=== PATIENT | male | born 1960 | race Caucasian/White ===

== ENCOUNTER 2017-07-13 14:29 | Emergency (ER) | payer OTHER ==
[~2017-07-13] VITALS: Ht 162.6 cm; Wt 72.3 kg
[2017-07-13 15:00] VITALS: Ht 162.6 cm; Wt 72.3 kg
[2017-07-13] MEDS ORDERED: SOD CHLORIDE 0.9% 1,000 ML IV STA (17:11)
[2017-07-13] MEDS ORDERED: ASPIRIN 325 MG TAB PO STA (17:11)
[2017-07-13 17:13] LABS: BASOPHILS % 0.4 % (0.0-2.0); EOSINOPHILS # 0.1 10^3/ul (0.0-0.5); EOSINOPHILS % 2.3 % (0.0-7.0); HEMATOCRIT 40.2 % (42.0-52.0); HEMOGLOBIN 13.5 g/dl (14.0-18.0); LYMPHOCYTES # 1.7 10^3/ul (0.8-2.9); LYMPHOCYTES % 32.7 % (15.0-51.0); MEAN CORPUSCULAR HEMOGLOBIN 31.2 pg (29.0-33.0); MEAN CORPUSCULAR HGB CONC 33.6 g/dl (32.0-37.0); MEAN CORPUSCULAR VOLUME 92.8 fl (82.0-101.0); MEAN PLATELET VOLUME 10.1 fl (7.4-10.4); MONOCYTE # 0.5 10^3/ul (0.3-0.9); MONOCYTES % 8.6 % (0.0-11.0); NEUTROPHIL # 2.9 10^3/ul (1.6-7.5); NEUTROPHILS % 55.8 % (39.0-77.0); PLATELET COUNT 260 10^3/UL (140-415); RED BLOOD COUNT 4.33 10^6/ul (4.70-6.10); RED CELL DISTRIBUTION WIDTH 13.1 % (11.5-14.5); WHITE BLOOD COUNT 5.2 10^3/ul (4.8-10.8)
[2017-07-13 17:36] LABS: ALANINE AMINOTRANSFERASE 46 IU/L (13-69); ALBUMIN 4.2 g/dl (3.3-4.9); ALBUMIN/GLOBULIN RATIO 1.23; ALKALINE PHOSPHATASE 66 IU/L (42-121); ANION GAP 13 (8-16); ASPARTATE AMINO TRANSFERASE 31 IU/L (15-46); BILIRUBIN,INDIRECT 0.1 mg/dl (0-1.1); BILIRUBIN,TOTAL 0.1 mg/dl (0.2-1.3); BLOOD UREA NITROGEN 11 mg/dl (7-20); CALCIUM 9.5 mg/dl (8.4-10.2); CARBON DIOXIDE 29 mmol/L (21-31); CHLORIDE 103 mmol/L (97-110); CREATINE KINASE 157 IU/L (23-200); CREATININE 0.63 mg/dl (0.61-1.24); GLUCOSE 105 mg/dl (70-220); POTASSIUM 4.4 mmol/L (3.5-5.1); SODIUM 141 mmol/L (135-144); TOTAL PROTEIN 7.6 g/dl (6.1-8.1)
--- NOTE | 2017-07-13 17:46 | RADRPT ---
PROCEDURE: CT soft tissue neck without contrast. CLINICAL INDICATION: Cough for 3 months with weight loss. TECHNIQUE: The study was performed utilizing a GE 64-slice multidetector CT scanner. Direct thin s ection helically acquired axial sections were obtained through the neck without contrast. Coronal a nd sagittal reformations were obtained. One or more the following dose reduction techniques were uti lized: Automated exposure control, adjustment of the mA/ or kV according to patient's size, or use of iterative reconstruction technique. DICOM images are available for review. The images were revie wed on a PACS workstation. The CTDIvol is 8.25 mGy and the DLP is 182.57 mGycm. COMPARISON: No prior studies are available for comparison. FINDINGS: There is prominence of the lymphoid soft tissue of the nasopharynx, greater than expected for age. N o discrete mass, however, is evident on this noncontrast CT. The oropharynx, hypopharynx, and larynx are all grossly normal in appearance on this noncontrast study. The thyroid gland is normal in siz e with no focal mass lesions seen. The submandibular and parotid glands are unremarkable and normal in appearance. No pathologically enlarged lymph nodes are detected. No osteolytic or blastic lesi on is evident. IMPRESSION: 1. There is prominence of the lymphoid soft tissue within the nasopharynx without a discrete mass s een on this noncontrast study. Follow-up is recommended with direct visual inspection and / or a pre and post contrast MRI of the soft tissues of the neck. 2. Otherwise, negative noncontrast CT of the soft tissues of the neck. RPTAT: HJAH .Priya Carmona MD, Date Time Electronically viewed and signed by .Priya Carmona MD, on 07/13/2017 17:46 .H/
[2017-07-13 17:48] LABS: B-TYPE NATRIURETIC PEPTIDE 41 PG/ML (0-125)
--- NOTE | 2017-07-13 17:48 | RADRPT ---
PROCEDURE: CT chest without contrast. CLINICAL INDICATION: Chronic cough TECHNIQUE: Routine CT scan of the chest was performed on a high resolution multidetector scanner wi thout intravenous contrast. One or more of the following dose reduction techniques were used: Automa hever exposure control; Adjustment of the mA and/or kV according to patient size; Use of iterative rec onstruction technique. CTDI = 10 mGy. DLP = 443 mGy-cm. DICOM images are available. COMPARISON: No prior examinations are available for comparison. FINDINGS: Aorta: Normal caliber and configuration of the thoracic aorta. Heart: Ungated examination demonstrates no significant abnormality. Lung parenchyma: No evidence of airspace or interstitial disease. A few small calcified granulomas a re present measuring 1 - 6 mm. Airways: Minimal peribronchial thickening is present. Pulmonary arteries: Normal caliber. Mediastinum: No evidence of mass or fluid collection. Lymph nodes: No mediastinal, hilar, or axillary lymphadenopathy. Osseous structures: Mild degenerative changes of the thoracic spine. A few small areas of increased sclerosis which appear to be bone islands measuring less than 5 mm are present at multiple levels. 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 Mul tiple old healed angulation deformities of the left mid ribs are present. Visualized upper abdomen: 2 cm benign-appearing cyst of the right lobe of the liver. IMPRESSION: No acute air space infiltrates. Minimal peribronchial thickening is present which may be secondary to small airways disease. RPTAT: AADD .Cordell Orosco MD, MD Date Time Electronically viewed and signed by .Cordell Orosco MD, on 07/13/2017 17:47 .B/
[2017-07-13 17:50] LABS: CK-MB 4.89 ng/ml (0.0-2.4); TROPONIN-I < 0.012 ng/ml (0.00-0.12)
--- NOTE | 2017-07-13 18:00 | ERD ---
ER Documentation Chief Complaint Chief Complaint RIGHT SHOULDER PAIN & LUMP IN THROAT = COUGH/DIFFICULTY BREATHING X 3 MONS HPI This is a 56-year-old male presents to the emergency department complaining of right shoulder pain for over a year and a half. The patient indicated that in 2008 he had a torn right rotator cuff repair and reinjured this 1 year ago. He is right-handed dominant. The pain in his right shoulder is exacerbated by movement. He denies any numbness or tingling of his right upper extremity. Indicates that he does utilize medicinal marijuana which improves right shoulder pain but indicates he has new medical insurance and therefore is currently waiting for referral to an orthopedic surgeon but would like analgesic medication until that time. He has not taken any NSAIDs or other analgesic medication. The patient also indicates for the past 3 months he has had a nonproductive cough worse at night and mild dyspnea. He used to smoke tobacco 30 years ago but denies any recent travel or prolonged immobilization. No fevers no shaking or chills. He also indicates he has a foreign body sensation in his throat but denies any choking or gagging episode. He denies any weight loss. He denies any chest pain or pressure that radiates to the neck arm back or jaw. Denies any abdominal pain or back pain. No frequency urgency or dysuria. No Shortness of breath at rest or exertion. ROS All systems reviewed and are negative except as per history of present illness. Medications Home Meds No Active Prescriptions or Reported Meds Allergies Allergies: Coded Allergies: No Known Allergy (Unverified , 07/13/17) PMhx/Soc History of Surgery: Yes (LT ROTATOR CUFF) Anesthesia Reaction: No Hx Neurological Disorder: No Hx Respiratory Disorders: No Hx Cardiac Disorders: No Hx Psychiatric Problems: No Hx Miscellaneous Medical Probl: No Hx Alcohol Use: No Hx Substance Use: No Hx Tobacco Use: No Smoking Status: Never smoker Physical Exam Vitals Vital Signs Date Time Temp Pulse Resp B/P Pulse Ox O2 Delivery O2 Flow Rate FiO2 07/13/17 17:16 62 16 123/77 97 Room Air 07/13/17 15:00 97.8 73 18 118/74 97 Physical Exam Constitutional:Well-developed. Well-nourished. HEENT:Normocephalic. Atraumatic.Pupils were equal round reactive to light. Moist mucous membranes.No tonsillar exudates. Neck: No nuchal rigidity. No lymphadenopathy. No posterior cervical spine tenderness or step-offs. Expanding neck hematoma. Respiratory: Not using accessory muscles of respiration.Lungs were clear to auscultation bilaterally. No rhonchi. No rales. No wheezing. Cardiovascular: Regular rate regular rhythm.No murmurs. No rubs were appreciated.S1, S2 normal. Distal pulses are palpable 2+ bilaterally. GI: Abdomen was soft. Nontender. Non Distended. No pulsatile abdominal masses or bruits. No rebound. No guarding. Bowel sounds were present and normal. Muscle skeletal: Full range of motion of both the upper and lower extremities bilaterally. Normal lie to the right humeral head. Decreased internal rotation on the right to spinal level L4 compared to spinal level T10 on the left with normal muscle tone.No assymetrical calf tenderness or swelling. Skin: No petechia, no purpura. No lesions on the palms or the soles of the feet. No maculopapular rash. NEURO: Patient was alert, awake, orientated x3.No facial droop. Gait observed and normal with no ataxia.Speech had regular rate and rhythm. No focal neurological deficits. Result Diagram: 07/13/17 1648 07/13/17 1648 Results 24 hrs Laboratory Tests Test 07/13/17 16:48 White Blood Count 5.210^3/ul Red Blood Count 4.3310^6/ul Hemoglobin 13.5g/dl Hematocrit 40.2% Mean Corpuscular Volume 92.8fl Mean Corpuscular Hemoglobin 31.2pg Mean Corpuscular Hemoglobin Concent 33.6g/dl Red Cell Distribution Width 13.1% Platelet Count 56168^3/UL Mean Platelet Volume 10.1fl Neutrophils % 55.8% Lymphocytes % 32.7% Monocytes % 8.6% Eosinophils % 2.3% Basophils % 0.4% Nucleated Red Blood Cells % 0.0/100WBC Neutrophils # 2.910^3/ul Lymphocytes # 1.710^3/ul Monocytes # 0.510^3/ul Eosinophils # 0.110^3/ul Basophils # 0.010^3/ul Nucleated Red Blood Cells # 0.010^3/ul Sodium Level 141mmol/L Potassium Level 4.4mmol/L Chloride Level 103mmol/L Carbon Dioxide Level 29mmol/L Anion Gap 13 Blood Urea Nitrogen 11mg/dl Creatinine 0.63mg/dl Glucose Level 105mg/dl Calcium Level 9.5mg/dl Total Bilirubin 0.1mg/dl Direct Bilirubin 0.00mg/dl Indirect Bilirubin 0.1mg/dl Aspartate Amino Transf (AST/SGOT) 31IU/L Alanine Aminotransferase (ALT/SGPT) 46IU/L Alkaline Phosphatase 66IU/L Creatine Kinase 157IU/L Creatine Kinase Index 3.1 Creatinine Kinase MB (Mass) 4.89ng/ml Troponin I < 0.012ng/ml B-Type Natriuretic Peptide 41PG/ML Total Protein 7.6g/dl Albumin 4.2g/dl Globulin 3.40g/dl Albumin/Globulin Ratio 1.23 Current Medications Medications (Trade) Dose Ordered Sig/Elodia Route PRN Reason Start Time Stop Time Status Last Admin Dose Admin Sodium Chloride (NS) 1,000 ml @ 1,000 mls/hr Q1H STAT IV 07/13/17 17:11 07/13/17 18:10 DC 07/13/17 17:21 Aspirin (Aspirin) 325 mg ONCE STAT PO 07/13/17 17:11 07/13/17 17:13 DC 07/13/17 17:21 Procedures/MDM This patient presented to the emergency department with chronic right shoulder pain. His physical exam findings did appear to be result of a partial rotator cuff tear. The patient was able to AB duct both upper extremities past 90 and there did not appear to be any abnormal lie to the right humeral head to suggest a fracture therefore did not obtain specific radiographic imaging the patient's right shoulder. He will be given a prescription of analgesic medication which will include NSAIDs for analgesia control until he can follow- up with his orthopedic surgeon to undergo an outpatient MRI Given the patient's persistent cough and history of remote tobacco use with no fever or signs of toxicity I did feel is necessary to obtain a CT scan of the patient's soft tissue of his neck and chest and there is no evidence of underlying fracture or infiltrates to suggest a pneumonia. I did obtain ancillary laboratory work which showed no electrolyte abnormalities. The patient did have an EKG reviewed by myself to rule out atypical myocardial infarction. 12 Lead EKG tracing ordered and reviewed by myself showed: Sinus bradycardia of 59 bpm and no arrhythmia. NV interval normal. QRS duration normal. Concave upstroke with no ST segment elevation in V3 V4 V5 V6. No ST segment depression. No changes consistent with acute ischemia. Please note that the EKG machine read acute myocardial infarction with an anterior septal infarct. This was taken at 1700. I immediately went to reevaluate the patient and again the patient never complained of any chest pain or pressure that radiated to the neck arm back or jaw. I also spoke with the on -call manager pest Dr. Yeung he was also in agreement with my medical management that this patient did not require cardiac catheterization as he was chest pain-free and the EKG did not show acute myocardial ischemia. Patient however did receive 325 mg of aspirin p.o. Patient had a repeat EKG performed at 1757 reviewed by myself. Patient had a sinus bradycardia. There is no ST segment elevation or depression. NV interval normal QRS duration normal. And the patient never complained of any chest discomfort and I did not feel this was a result of a STEMI. I did feel the patient's cough could be result of a viral etiology as the CT scan of the chest read by the radiologist myself indicated the following: Minimal peribronchial thickening is present which may be secondary to small airways disease The patient was discharged home in fair condition. They were instructed to return to the emergency department at any time if there was any worsening of their condition. The patient stated they would follow up with their PCP in the next 24-48 hours to initiate a suitable medication regimen under the care of their PCP as well as to allow their PCP to monitor any drug reactions. The patient was discharged home with prescriptions after they gave informed consent to the new medication. They were also fully informed by myself on the adverse effects and adverse drug interactions in order to provide adequate safeguards to prevent possible adverse reactions to medications. Departure Diagnosis: Primary Impression: Rotator cuff injury Encounter type: initial encounter Laterality: right Qualified Code: S46.001A - Injury of right rotator cuff, initial encounter Additional Impression: Cough in adult Condition: Fair LUL THEODORE Jul 13, 2017 18:00
[2017-07-13] MEDS ORDERED: BENZ100C70 PO (19:06)
[2017-07-13] MEDS ORDERED: HYDR-906 PO (19:06)
[2017-07-13] MEDS ORDERED: NAPR-260 PO (19:06)
[2017-07-13 19:30] VITALS: BP 126/77; PULSE 64; RESP 18; TEMP 97.9
== END 2017-07-13 19:40 | disposition home or self-care (01) ==
LOC: FTE 14:29 → E/R 19:40
DX: S46.001A Unspecified injury of muscle(s) and tendon(s) of the rotator cuff of right shoulder, initial encounter (principal); R05 Cough; R00.1 Bradycardia, unspecified; X58.XXXA Exposure to other specified factors, initial encounter; Y92.9 Unspecified place or not applicable
CPT/HCPCS: 70490; 71250; 80053; 82550; 82553; 83880; 84484; 85025; 93005; J7030; Z7502

== ENCOUNTER 2017-10-13 10:23 | Emergency (ER) | END 2017-10-13 18:19 ==